=== PATIENT | female | born 1955 | race Caucasian/White ===

== ENCOUNTER 2017-05-15 06:37 | Outpatient (CLI) | payer MEDICARE | END 2017-05-15 06:38 | disposition short-term general hospital (02) | LOC: EMS 06:37 | PROVIDERS: ATTEND Surgery | DX: R53.1 Weakness (principal); W18.30XA Fall on same level, unspecified, initial encounter; Y93.9 Activity, unspecified; Y92.009 Unspecified place in unspecified non-institutional (private) residence as the place of occurrence of the external cause | CPT/HCPCS: A0425; A0427; A0888 ==

== ENCOUNTER 2017-08-02 08:34 | Outpatient (CLI) | payer MEDICARE | END 2017-08-02 08:35 | disposition EMS.NT | LOC: EMS 08:34 | PROVIDERS: ATTEND Surgery | DX: R73.09 Other abnormal glucose (principal) ==

== ENCOUNTER 2017-09-14 03:33 | Outpatient (CLI) | payer MEDICARE | END 2017-09-14 03:34 | disposition short-term general hospital (02) | LOC: EMS 03:33 | PROVIDERS: ATTEND Surgery | DX: R53.1 Weakness (principal); R11.0 Nausea; R42 Dizziness and giddiness | CPT/HCPCS: A0425; A0427; A0888 ==

== ENCOUNTER 2017-09-19 06:34 | Outpatient (CLI) | payer MEDICARE | END 2017-09-19 06:35 | disposition EMS.NT | LOC: EMS 06:34 | PROVIDERS: ATTEND Surgery | DX: R68.83 Chills (without fever) (principal); R53.83 Other fatigue ==

== ENCOUNTER 2017-09-21 05:32 | Outpatient (CLI) | payer MEDICARE | END 2017-09-21 05:33 | disposition short-term general hospital (02) | LOC: EMS 05:32 | PROVIDERS: ATTEND Surgery | DX: R40.0 Somnolence (principal) | CPT/HCPCS: A0425; A0427; A0888 ==

== ENCOUNTER 2018-01-09 06:00 | Outpatient (CLI) | payer MEDICARE | END 2018-01-09 06:01 | disposition short-term general hospital (02) | LOC: EMS 06:00 | PROVIDERS: ATTEND Surgery | DX: R47.81 Slurred speech (principal); R41.0 Disorientation, unspecified | CPT/HCPCS: A0425; A0429; A0888 ==

== ENCOUNTER 2018-03-31 12:46 | Outpatient (CLI) | payer MEDICARE | END 2018-03-31 12:47 | disposition short-term general hospital (02) | LOC: EMS 12:46 | PROVIDERS: ATTEND Surgery | DX: I10 Essential (primary) hypertension (principal) | CPT/HCPCS: A0425; A0429 ==

== ENCOUNTER 2018-04-11 14:46 | Outpatient (CLI) | payer MEDICARE | END 2018-04-11 23:59 | disposition short-term general hospital (02) | LOC: EMS 14:46 | PROVIDERS: ATTEND Surgery | DX: R51 Headache (principal); R42 Dizziness and giddiness | CPT/HCPCS: A0425; A0427; A0888 ==

== ENCOUNTER 2018-10-12 15:15 | Outpatient (CLI) | payer MEDICARE | END 2018-10-12 15:16 | disposition short-term general hospital (02) | LOC: EMS 15:15 | PROVIDERS: ATTEND Surgery | DX: R07.9 Chest pain, unspecified (principal) | CPT/HCPCS: A0425; A0427 ==

== ENCOUNTER 2018-12-23 03:53 | Outpatient (CLI) | payer MEDICARE, MEDICAID | END 2018-12-23 03:54 | disposition EMS.NT | LOC: EMS 03:53 | PROVIDERS: ATTEND Surgery | DX: R41.82 Altered mental status, unspecified (principal) ==

== ENCOUNTER 2018-12-24 06:43 | Outpatient (CLI) | payer MEDICARE, MEDICAID | END 2018-12-24 06:44 | disposition short-term general hospital (02) | LOC: EMS 06:43 | PROVIDERS: ATTEND Surgery | DX: R41.0 Disorientation, unspecified (principal) | CPT/HCPCS: A0425; A0427 ==

== ENCOUNTER 2019-01-01 12:41 | Outpatient (CLI) | payer MEDICARE, MEDICAID | END 2019-01-01 12:42 | disposition short-term general hospital (02) | LOC: EMS 12:41 | PROVIDERS: ATTEND Surgery | DX: R47.81 Slurred speech (principal); R41.0 Disorientation, unspecified; R05 Cough; R19.7 Diarrhea, unspecified | CPT/HCPCS: A0425; A0429; A0888 ==

== ENCOUNTER 2019-09-18 10:56 | Outpatient (CLI) | payer MEDICARE, MEDICAID | END 2019-09-18 10:57 | disposition short-term general hospital (02) | LOC: EMS 10:56 | PROVIDERS: ATTEND Surgery | DX: R55 Syncope and collapse (principal); K92.0 Hematemesis; R53.1 Weakness; S19.9XXA Unspecified injury of neck, initial encounter; M54.2 Cervicalgia; W19.XXXA Unspecified fall, initial encounter; Y92.008 Other place in unspecified non-institutional (private) residence as the place of occurrence of the external cause | CPT/HCPCS: A0425; A0427 ==

== ENCOUNTER 2020-01-05 12:35 | Outpatient (CLI) | payer MEDICARE, MEDICAID | END 2020-01-05 12:36 | disposition critical access hospital (66) | LOC: EMS 12:35 | PROVIDERS: ATTEND Surgery | DX: R73.09 Other abnormal glucose (principal); R51 Headache; R53.83 Other fatigue | CPT/HCPCS: A0425; A0427 ==

== ENCOUNTER 2020-01-05 12:55 | Emergency (ER) | payer MEDICARE, MEDICAID ==
[2020-01-05] MEDS ORDERED: DEXTROSE 10% 250 ML IV STA (13:09)
--- NOTE | 2020-01-05 13:11 | ED Physician Documentation ---
History of Present Illness - Stated complaint Stated Complaint: LOW BLOOD SUGAR - History obtained from History obtained from: Patient, Family - History of Present Illness Timing: Today Pain level max: 0 Pain level now: 0 - Additonal information Additional information: 64-year-old female presents to the emergency department stating that her blood sugar was low today. EMS states it was 21 on scene. They started D10 and it drove the patient here. Patient states she is currently feeling better. Was discharged from [facility] yesterday for DKA. Her states that he gave her her normal Lantus last night and this morning. She ate and drink normally as well. Nothing makes this better or worse. Patient is otherwise asymptomatic. Review of Systems Ten Systems: 10 systems reviewed and negative Constitutional: denies: Fever, Chills Throat: denies: Sore throat Cardiac: denies: Chest pain / pressure Respiratory: denies: Cough GI: denies: Vomiting, Diarrhea Skin: denies: Rash Musculoskeletal: denies: Neck pain, Back pain Neurologic: denies: Headache PD PAST MEDICAL HISTORY - Past Medical History Cardiovascular: None Respiratory: None Endocrine/Autoimmune: Type 2 diabetes GI: GERD, Pancreatitis : None Psych: None Musculoskeletal: None - Past Surgical History Past Surgical History: Yes General: Cholecystectomy - Present Medications Home Medications: Ambulatory Orders Medication Instructions Recorded Confirmed Gabapentin 200 mg PO 3-4XD 07/29/13 07/29/13 Insulin Glargine [Lantus] 13 unit SUBQ BID 07/29/13 07/29/13 Insulin Lispro [Humalog] 5 unit SUBQ ONCE 07/29/13 07/29/13 Omeprazole [Prilosec] 10 mg PO BID 07/29/13 07/29/13 traZODone [Desyrel] 100 mg PO HS 07/29/13 07/29/13 Cephalexin [Keflex] 500 mg PO Q6H #20 capsule 01/05/20 - Allergies Allergies/Adverse Reactions: Allergies Allergy/AdvReac Type Severity Reaction Status Date / Time Iodinated Contrast Media Allergy Intermediate throat Verified 01/05/20 13:08 swelling - Social History Does the pt smoke?: Yes Smoking Status: Current every day smoker Does the pt drink ETOH?: No Does the pt have substance abuse?: No - Immunizations Immunizations are current?: Yes PD ED PE NORMAL - Vitals Vital signs reviewed: Yes - General General: Alert and oriented X 3, No acute distress - HEENT HEENT: Moist mucous membranes - Neck Neck: Supple, no meningeal sign - Cardiac Cardiac: RRR - Respiratory Respiratory: No respiratory distress, Clear bilaterally - Abdomen Abdomen: Soft, Non tender, Non distended - Derm Derm: Warm and dry - Extremities Extremities: No tenderness to palpate - Neuro Neuro: Alert and oriented X 3 - Psych Psych: Normal mood, Normal affect Results - Vitals Vitals: Vital Signs - 24 hr 01/05/20 12:58 Temperature 37.2 C Heart Rate 70 Respiratory 16 Rate Blood Pressure 165/88 H O2 Saturation 100 Oxygen O2 Source Room air - Labs Labs: Laboratory Tests 01/05/20 01/05/20 01/05/20 13:20 13:20 14:05 WBC 8.1 RBC 3.89 L Hgb 11.9 L Hct 36.4 L MCV 93.6 MCH 30.6 MCHC 32.7 RDW 15.4 H Plt Count 298 MPV 10.5 Neut # (Auto) 6.3 Lymph # (Auto) 1.1 L [place] # (Auto) 0.7 Eos # (Auto) 0.0 Baso # (Auto) 0.0 Absolute Nucleated RBC 0.00 Nucleated RBC % 0.0 Sodium 134 L Potassium 2.9 L Chloride 102 Carbon Dioxide 24 Anion Gap 8.0 BUN 14 Creatinine 0.9 Estimated GFR (MDRD) 63 L Glucose 156 H Calcium 8.0 L Total Bilirubin 0.8 AST 26 ALT 18 Alkaline Phosphatase 61 Total Protein 5.5 L Albumin 2.4 L Globulin 3.1 Albumin/Globulin Ratio 0.8 L Lipase 15 L Urine Color YELLOW Urine Clarity HAZY Urine pH 5.5 Ur Specific [place] >=1.030 H Urine Protein >=300 H Urine Glucose (UA) NEGATIVE Urine Ketones TRACE Urine Occult Blood TRACE-INTA Urine Nitrite NEGATIVE Urine Bilirubin NEGATIVE Urine Urobilinogen 0.2 (NORMAL) Ur Leukocyte Esterase NEGATIVE Urine RBC 0-5 Urine WBC 0-3 Ur Squamous Epith Cells NONE SEEN Urine Bacteria Moderate H Ur Microscopic Review INDICATED Urine Culture Comments INDICATED PD MEDICAL DECISION MAKING - ED course Complexity details: reviewed results, re-evaluated patient, considered differential, d/w patient, d/w family ED course: Hypoglycemia resolved in the emergency department. Given Rocephin for UTI. Will place on Keflex as well. She is well-appearing, nontoxic. Afebrile. Asymptomatic. Patient and family counseled regarding signs and symptoms for which I believe and urgent re-evaluation would be necessary. Patient with good understanding of and agreement to plan and is comfortable going home at this time This document was made in part using voice recognition software. While efforts are made to proofread this document, sound alike and grammatical errors may occur. Departure - Departure Disposition: Home, Self Care Clinical Impression: Hypoglycemia UTI (urinary tract infection) Qualifiers: Urinary tract infection type: acute cystitis Hematuria presence: without hematuria Qualified Code(s): N30.00 - Acute cystitis without hematuria Condition: Good Instructions: ED Diabetes Hypoglycemia Insulin React, ED UTI Cystitis Female Follow-Up: Elizabeth Mchugh MD [Primary Care Provider] - Within 3 Days Prescriptions: Cephalexin [Keflex] 500 mg PO Q6H #20 capsule Comments: Take all antibiotics until gone. Return if you worsen. Follow-up with your doctor for further care. Make sure she is eating and drinking well at home.
[2020-01-05 13:26] LABS: BASOPHILS % (AUTO) 0.2 %; EOSINOPHILS % (AUTO) 0.4 %; HGB - HEMOGLOBIN 11.9 g/dL (12.0-16.0); LYMPHOCYTES # (AUTO) 1.1 10^3/uL (1.5-3.5); MEAN CORPUSCULAR HEMOGLOBIN 30.6 pg (27.0-31.0); MEAN CORPUSCULAR HGB CONC 32.7 g/dL (32.0-36.0); MEAN CORPUSCULAR VOLUME 93.6 fL (81.0-99.0); MEAN PLATELET VOLUME 10.5 fL (7.9-10.8); MONOCYTES # (AUTO) 0.7 10^3/uL (0.0-1.0); MONOCYTES % (AUTO) 8.1 %; NEUTROPHILS # (AUTO) 6.3 10^3/uL (1.5-6.6); NEUTROPHILS % (AUTO) 76.8 %; PLT - PLATELET COUNT 298 10^3/uL (130-450); RED BLOOD COUNT 3.89 10^6/uL (4.20-5.40); RED CELL DISTRIBUTION WIDTH 15.4 % (12.0-15.0); WHITE BLOOD COUNT 8.1 x10^3/uL (4.8-10.8)
[2020-01-05 13:39] LABS: ALBUMIN 2.4 g/dL (3.2-5.5); ALBUMIN/GLOBULIN RATIO 0.8 (1.0-2.2); BILIRUBIN,TOTAL 0.8 mg/dL (0.2-1.0); CREATININE 0.9 mg/dL (0.4-1.0); TOTAL PROTEIN 5.5 g/dL (6.7-8.2)
[2020-01-05] MEDS ORDERED: POTASSIUM CHLORIDE 20 MEQ TABLET PO STA (14:11)
[2020-01-05 14:18] LABS: GLUCOSE, URINE (UA) NEGATIVE (NEGATIVE); KETONES,URINE (UA) TRACE mg/dL (NEGATIVE); LEUKOCYTE ESTERASE, URINE NEGATIVE (NEGATIVE); NITRITE,URINE NEGATIVE (NEGATIVE); OCCULT BLOOD,URINE TRACE-INTA (NEGATIVE); PH,URINE 5.5 PH (5.0-7.5); PROTEIN,URINE >=300 mg/dL (NEGATIVE); UROBILINOGEN,URINE 0.2 (NORMAL) E.U./dL (NORMAL)
[2020-01-05 14:25] LABS: CLARITY,URINE HAZY (CLEAR)
[2020-01-05 14:27] LABS: BACTERIA,URINE Moderate /HPF (None Seen); BILIRUBIN,URINE NEGATIVE (NEGATIVE); ICTOTEST,URINE NEGATIVE; RBC,URINE 0-5 /HPF (0-5); SQUAMOUS EPITHELIAL CELL,UR NONE SEEN (<= Few)
[2020-01-05] MEDS ORDERED: cefTRIAXone 1 GM VIAL IVP STA (14:51)
[2020-01-05 15:42] VITALS: BP 166/92
== END 2020-01-05 15:50 | disposition home or self-care (01) ==
LOC: EDUNIT# → ED 12:55
DX: E11.649 Type 2 diabetes mellitus with hypoglycemia without coma (principal); N30.00 Acute cystitis without hematuria; F17.210 Nicotine dependence, cigarettes, uncomplicated; Z79.4 Long term (current) use of insulin
CPT/HCPCS: 36415; 80053; 81001; 83690; 85025; 87086; 96374; 99283; 99284; A9270; 81003

== ENCOUNTER 2020-08-06 14:47 | Outpatient (CLI) | payer MEDICARE, MEDICAID | END 2020-08-06 14:48 | disposition short-term general hospital (02) | LOC: EMS 14:47 | PROVIDERS: ATTEND Surgery | DX: Z04.3 Encounter for examination and observation following other accident (principal) | CPT/HCPCS: A0425; A0429 ==

== ENCOUNTER 2021-01-16 15:47 | Outpatient (CLI) | payer MEDICARE, MEDICAID ==
--- OUTSIDE RECORDS SUMMARY | 2021-01-23 00:18 | EXTERNAL MEDICAL SUMMARY RPT | Continuity of Care Document ---
:1955 Demographics Phone Unavailable Preferred Language Faroese Marital Status Unknown Episcopalian Affiliation Unknown Race Unknown Ethnic Group Unknown Author Organization [place] Address [address] [phone] Phone Care Team Providers Name Role Phone Kellie Unavailable Unavailable Leland Unavailable Unavailable Problems date description facility 20210116 Type 2 diabetes mellitus with ketoacido sis without [facility] Procedures date description facility 20201208 [facility] date description facility 20210116 [facility] Vital Signs date measurement value source 20201208 BMI 26.4 kg/m2 20201208 height_metric 160.02 cm 20201208 height_standard 63 in 20201208 temperature_metric 36.67 C 20201208 temperature_standard 98 F 20201208 weight_metric 30.66 kg 20201208 weight_standard 67.58 lb date measurement value source 20201209 BP_diastolic 69 mm[Hg] 20201209 BP_systolic 118 mm[Hg] 20201209 heart_rate 71 /min 20201209 respiration_rate 12 /min date measurement value source 20210116 BP_diastolic 72 mm[Hg] [id number] BP_systolic 108 mm[Hg] [id number] heart_rate 115 /min 20210116 height_metric 152.4 cm [id number] height_standard 60 in 20210116 respiration_rate 20 /min 20210116 temperature_metric 37 C 20210116 temperature_standard 98.6 F 20210116 weight_metric 25.63 kg 20210116 weight_metric 26.13 kg [id number] weight_standard 56.5 lb 20210116 weight_standard 57.61 lb date measurement value source 20210117 BP_diastolic 80 mm[Hg] [id number] BP_systolic 130 mm[Hg] 20210117 heart_rate 92 /min 20210117 respiration_rate 28 /min 20210117 temperature_metric 36.56 C 20210117 temperature_standard 97.8 F Social History date description facility [id number]
== END 2021-01-16 15:48 | disposition short-term general hospital (02) ==
LOC: EMS 15:47
DX: R00.0 Tachycardia, unspecified (principal); R42 Dizziness and giddiness
CPT/HCPCS: A0425; A0427

== ENCOUNTER 2021-05-08 12:53 | Outpatient (CLI) | payer MEDICARE, MEDICAID | END 2021-05-08 12:54 | disposition critical access hospital (66) | LOC: EMS 12:53 | DX: R41.0 Disorientation, unspecified (principal) | CPT/HCPCS: A0425; A0429 ==

== ENCOUNTER 2021-05-08 13:17 | Emergency (ER) | payer MEDICARE, MEDICAID ==
--- NOTE | 2021-05-08 13:23 | ED Physician Documentation ---
PD HPI ALTERED MENTAL STATUS - Stated complaint Stated Complaint: ALOC - History obtained from History obtained from: Patient, Friend, EMS - History of Present Illness Timing - onset: Today Timing - duration: Minutes (5-10) Timing - details: Abrupt onset (She states she had slept later this morning and had just woken up and felt a bit confused and then it cleared. Her caregiver and friend both felt she seemed more confused than usual and called EMS.), Now resolved Quality / character: Confused Associated symptoms: No: Fever, Headache Contributing factors: No: Recent med change, Recent illness Basline status: Alert and oriented X 3 Similar symptoms before: Has not had sx before (has had some), Other (has had more persistent confusion with UTIs, and had one about a month ago.) Recently seen: Other (in [place], was in for abd pains and had CT showing mass near gallbladder that needs further eval. Has appt with PCP this Thursday (in 2 days). Has seen GI in [place] in the past for EGDs.) Review of Systems Constitutional: denies: Fever, Chills Nose: denies: Rhinorrhea / runny nose, Congestion Throat: denies: Sore throat Respiratory: denies: Cough GI: denies: Vomiting, Diarrhea (loose stool), Bloody / black stool : reports: Incontinent. denies: Dysuria Skin: denies: Rash Neurologic: reports: Confused (for few minutes this morning, to baseline now.). denies: Headache PD PAST MEDICAL HISTORY - Past Medical History Cardiovascular: None Respiratory: None Endocrine/Autoimmune: Type 2 diabetes GI: GERD, Pancreatitis : None Psych: None Musculoskeletal: None - Past Surgical History Past Surgical History: Yes General: Cholecystectomy - Present Medications Home Medications: Ambulatory Orders Medication Instructions Recorded Confirmed Gabapentin 200 mg PO 3-4XD 07/29/13 07/29/13 Insulin Glargine [Lantus] 13 unit SUBQ BID 07/29/13 07/29/13 Insulin Lispro [Humalog] 5 unit SUBQ ONCE 07/29/13 07/29/13 Omeprazole [Prilosec] 10 mg PO BID 07/29/13 07/29/13 traZODone [Desyrel] 100 mg PO HS 07/29/13 07/29/13 cephALEXin [Keflex] 500 mg PO Q6H #20 capsule 01/05/20 - Allergies Allergies/Adverse Reactions: Allergies Allergy/AdvReac Type Severity Reaction Status Date / Time Iodinated Contrast Media Allergy Intermediate throat Verified 05/08/21 13:35 swelling - Social History Does the pt smoke?: Yes Smoking Status: Current every day smoker Does the pt drink ETOH?: No Does the pt have substance abuse?: No - Immunizations Immunizations are current?: Yes PD ED PE NORMAL - Vitals Vital signs reviewed: Yes - General General: Alert and oriented X 3, Well developed/nourished - HEENT HEENT: Atraumatic, Moist mucous membranes, Pharynx benign - Neck Neck: Supple, no meningeal sign, No adenopathy - Cardiac Cardiac: RRR, No murmur - Respiratory Respiratory: Clear bilaterally - Abdomen Abdomen: Normal bowel sounds, Soft, Non distended, No organomegaly - Derm Derm: Normal color, Warm and dry - Extremities Extremities: Normal ROM s pain - Neuro Neuro: Alert and oriented X 3, No motor deficit, Normal speech NIHSS - Level of Consciousness Level of consciousness: (0) Alert, Keenly responsive LOC Questions: (0) Answers both Q's correct LOC Commands: (0) Performs both correctly - Gaze Best Gaze: (0) Normal - Visual Visual: (0) No loss - Facial Palsy Facial Palsy: (0) Normal, symmetrical movement - Motor Arms (both separate) Motor Arm (right): (0) No drift Motor Arm (left): (0) No drift - Motor Legs (both separate) Motor Leg (right): (0) No drift Motor Leg (left): (0) No drift - Limb Ataxia Limb Ataxia: (0) Absent - Sensory Sensory: (0) Normal - Best Language Best Language: (0) No aphasia - Dysarthria Dysarthria: (0) Normal - Extinction and Inattention (formally neg Extinction and inattention: (0) No abnormality - Total Score/Results Total Score/Result: 0 Results - Vitals Vitals: Vital Signs - 24 hr 05/08/21 05/08/21 05/08/21 13:26 14:28 17:23 Temperature 36.9 C 36.6 C 36.7 C Heart Rate 73 71 116 H Respiratory 14 14 16 Rate Blood Pressure 151/90 H 150/88 H 156/80 H O2 Saturation 96 98 97 Oxygen O2 Source Room air - Labs Labs: Laboratory Tests 05/08/21 05/08/21 05/08/21 13:53 13:53 14:44 WBC 7.7 RBC 3.90 L Hgb 10.1 L Hct 31.7 L MCV 81.3 MCH 25.9 L MCHC 31.9 L RDW 13.9 Plt Count TNP MPV TNP Neut # (Auto) 4.3 Lymph # (Auto) 2.4 [place] # (Auto) 0.8 Eos # (Auto) 0.1 Baso # (Auto) 0.0 Absolute Nucleated RBC 0.00 Nucleated RBC % 0.0 Manual Slide Review Indicated Platelet Estimate NORMAL (130-450,000) Platelet Morphology PLATELET CLUMPING Sodium 138 Potassium 3.3 L Chloride 107 Carbon Dioxide 24 Anion Gap 7.0 BUN 11 Creatinine 1.4 H Estimated GFR (MDRD) 38 L Glucose 62 L Calcium 8.6 Total Bilirubin 0.6 AST 22 ALT 16 Alkaline Phosphatase 72 Troponin I High Sens 14.1 Total Protein 6.4 L Albumin 2.8 L Globulin 3.6 Albumin/Globulin Ratio 0.8 L Lipase 16 L Urine Color Urine Clarity Urine pH Ur Specific [place] Urine Protein Urine Glucose (UA) Urine Ketones Urine Occult Blood Urine Nitrite Urine Bilirubin Urine Urobilinogen Ur Leukocyte Esterase Urine RBC Urine WBC Ur Squamous Epith Cells Amorphous Sediment Urine Bacteria Urine Yeast Ur Microscopic Review Urine Culture Comments Ethyl Alcohol < 5.0 05/08/21 16:20 WBC RBC Hgb Hct MCV MCH MCHC RDW Plt Count MPV Neut # (Auto) Lymph # (Auto) [place] # (Auto) Eos # (Auto) Baso # (Auto) Absolute Nucleated RBC Nucleated RBC % Manual Slide Review Platelet Estimate Platelet Morphology Sodium Potassium Chloride Carbon Dioxide Anion Gap BUN Creatinine Estimated GFR (MDRD) Glucose Calcium Total Bilirubin AST ALT Alkaline Phosphatase Troponin I High Sens Total Protein Albumin Globulin Albumin/Globulin Ratio Lipase Urine Color YELLOW Urine Clarity CLEAR Urine pH 6.0 Ur Specific [place] >=1.030 H Urine Protein >=300 H Urine Glucose (UA) NEGATIVE Urine Ketones NEGATIVE Urine Occult Blood TRACE-INTA Urine Nitrite NEGATIVE Urine Bilirubin NEGATIVE Urine Urobilinogen 0.2 (NORMAL) Ur Leukocyte Esterase NEGATIVE Urine RBC 0-5 Urine WBC 0-3 Ur Squamous Epith Cells FEW Squamous Amorphous Sediment Marked Urine Bacteria Few Urine Yeast PRESENT Ur Microscopic Review INDICATED Urine Culture Comments NOT INDICATED Ethyl Alcohol - Rads (name of study) head CT Radiology: Prelim report reviewed (no ICH swelling nor massess.), See rad report PD MEDICAL DECISION MAKING - ED course Complexity details: reviewed results, re-evaluated patient, considered differential (seems alert and conversant here. She states she was just tired and did not wake up quickly. No focal weakness reported. ), d/w patient Departure - Departure Disposition: 01 Home, Self Care Clinical Impression: Transient confusion Condition: Stable Record reviewed to determine appropriate education?: Yes Comments: You look good here without any signs of bladder infection, altered blood sugar electrolytes focal weaknesses or other acute problems. I do not know the cause of your confusion transiently today. Continue usual medications and hydration. Follow-up with your primary care as planned later this week. Return if further problems. Discharge Date/Time: 05/08/21 17:25
[2021-05-08] MEDS ORDERED: SODIUM CHLORIDE 0.9% 1,000 ML IV STA (13:43)
[2021-05-08 14:14] LABS: ALBUMIN 2.8 g/dL (3.2-5.5); ALBUMIN/GLOBULIN RATIO 0.8 (1.0-2.2); ALKALINE PHOSPHATASE 72 IU/L (42-121); ALT ALANINE AMINOTRANSFERASE 16 IU/L (10-60); AST ASPARTATE AMINOTRANSFERASE 22 IU/L (10-42); BILIRUBIN,TOTAL 0.6 mg/dL (0.2-1.0); BUN - BLOOD UREA NITROGEN 11 mg/dL (6-20); CALCIUM 8.6 mg/dL (8.5-10.3); CARBON DIOXIDE - CO2 24 mmol/L (21-32); CHLORIDE 107 mmol/L (101-111); CREATININE 1.4 mg/dL (0.4-1.0); ETOH - ETHANOL < 5.0 mg/dL; GFR - MDRD 38 (>89); GLUCOSE 62 mg/dL (70-100); LIPASE 16 U/L (22-51); POTASSIUM 3.3 mmol/L (3.5-5.0); SODIUM 138 mmol/L (135-145); TOTAL PROTEIN 6.4 g/dL (6.7-8.2)
--- NOTE | 2021-05-08 14:15 | CT Report ---
PROCEDURE: HEAD WO INDICATIONS: confusion transient PEARL DIVER TECHNIQUE: Noncontrast 4.5 mm thick angled axial sections acquired from the foramen magnum to the vertex. For r adiation dose reduction, the following was used: automated exposure control, adjustment of mA and/or kV according to patient size. COMPARISON: None. FINDINGS: Image quality: Excellent. CSF spaces: Basal cisterns are patent. No extra-axial fluid collections. The ventricles are symmet jesusita in size and shape. Brain: No intracranial bleeds or masses. Old lacunar infarct is seen in right basal ganglia. There i s cerebral volume loss for age, with resultant ventricular and sulcal prominence. There are perivent ricular and deep white matter chronic small vessel ischemic changes. There is intracranial internal carotid artery atherosclerosis. Skull and face: Calvarium and visualized facial bones appear intact, without suspicious lesions. Sinuses: Visualized sinuses and mastoids are clear. IMPRESSION: 1. No CT evidence of acute intracranial bleed, midline shift or mass effect. No definite CT evidence of acute infarction. 2. Old lacunar infarct in right basal ganglia. Moderate white matter chronic small vessel ischemic ch anges. Parenchymal volume loss. Reviewed by: Joe Lopez MD on 05/08/2021 2:13 PM PDT Approved by: Joe Lopez MD on 05/08/2021 2:13 PM PDT Station ID: [id number]
[2021-05-08 14:50] LABS: BASOPHILS % (AUTO) 0.4 %; EOSINOPHILS # (AUTO) 0.1 10^3/uL (0.0-0.7); EOSINOPHILS % (AUTO) 0.9 %; HCT - HEMATOCRIT 31.7 % (37.0-47.0); HGB - HEMOGLOBIN 10.1 g/dL (12.0-16.0); LYMPHOCYTES # (AUTO) 2.4 10^3/uL (1.5-3.5); LYMPHOCYTES % (AUTO) 31.9 %; MEAN CORPUSCULAR HEMOGLOBIN 25.9 pg (27.0-31.0); MEAN CORPUSCULAR HGB CONC 31.9 g/dL (32.0-36.0); MEAN CORPUSCULAR VOLUME 81.3 fL (81.0-99.0); MONOCYTES # (AUTO) 0.8 10^3/uL (0.0-1.0); MONOCYTES % (AUTO) 9.9 %; NEUTROPHILS # (AUTO) 4.3 10^3/uL (1.5-6.6); NEUTROPHILS % (AUTO) 56.5 %; RED CELL DISTRIBUTION WIDTH 13.9 % (12.0-15.0); WHITE BLOOD COUNT 7.7 x10^3/uL (4.8-10.8)
[2021-05-08 14:53] LABS: SLIDE REVIEW? Indicated
[2021-05-08 15:27] LABS: PLATELET ESTIMATE, MANUAL NORMAL (130-450,000) (NORMAL); PLATELET MORPHOLOGY PLATELET CLUMPING (NORMAL)
[2021-05-08 16:29] LABS: BILIRUBIN,URINE NEGATIVE (NEGATIVE); GLUCOSE, URINE (UA) NEGATIVE (NEGATIVE); KETONES,URINE (UA) NEGATIVE (NEGATIVE); LEUKOCYTE ESTERASE, URINE NEGATIVE (NEGATIVE); NITRITE,URINE NEGATIVE (NEGATIVE); OCCULT BLOOD,URINE TRACE-INTA (NEGATIVE); PROTEIN,URINE >=300 mg/dL (NEGATIVE); UROBILINOGEN,URINE 0.2 (NORMAL) E.U./dL (NORMAL)
[2021-05-08 16:30] LABS: CLARITY,URINE CLEAR (CLEAR)
[2021-05-08 16:40] LABS: AMORPHOUS SEDIMENT,UR Marked /LPF; BACTERIA,URINE Few /HPF (None Seen); RBC,URINE 0-5 /HPF (0-5); SQUAMOUS EPITHELIAL CELL,UR FEW Squamous (<= Few); WBC,URINE 0-3 /HPF (0-5); YEAST,URINE PRESENT
[2021-05-08 17:24] VITALS: BP 156/80
== END 2021-05-08 17:25 | disposition home or self-care (01) ==
LOC: EDUNIT# → ED 13:17
DX: R41.0 Disorientation, unspecified (principal); E11.9 Type 2 diabetes mellitus without complications; Z79.4 Long term (current) use of insulin
CPT/HCPCS: 36415; 70450; 80053; 81001; 83690; 84484; 85025; 93005; 96360; 96361; 99284; G0480; 80320; 81003; 87086

== ENCOUNTER 2021-05-14 17:41 | Outpatient (CLI) | payer MEDICARE, MEDICAID | END 2021-05-14 17:42 | disposition EMS.NT | LOC: EMS 17:41 | DX: R50.9 Fever, unspecified (principal); R42 Dizziness and giddiness ==

== ENCOUNTER 2021-08-02 09:39 | Outpatient (CLI) | payer MEDICARE, MEDICAID | END 2021-08-02 09:40 | disposition short-term general hospital (02) | LOC: EMS 09:39 | DX: K92.0 Hematemesis (principal) | CPT/HCPCS: A0425; A0427 ==

== ENCOUNTER 2021-09-14 06:54 | Outpatient (CLI) | payer MEDICARE, MEDICAID | END 2021-09-14 06:55 | disposition short-term general hospital (02) | LOC: EMS 06:54 | DX: R22.0 Localized swelling, mass and lump, head (principal); R22.33 Localized swelling, mass and lump, upper limb, bilateral | CPT/HCPCS: A0425; A0427 ==

== ENCOUNTER 2021-11-24 21:01 | Outpatient (CLI) | payer MEDICARE, MEDICAID | END 2021-11-24 21:02 | disposition short-term general hospital (02) | LOC: EMS 21:01 | DX: S01.81XA Laceration without foreign body of other part of head, initial encounter (principal); M25.551 Pain in right hip; W01.190A Fall on same level from slipping, tripping and stumbling with subsequent striking against furniture, initial encounter; Y93.01 Activity, walking, marching and hiking; Y92.003 Bedroom of unspecified non-institutional (private) residence as the place of occurrence of the external cause | CPT/HCPCS: A0425; A0427 ==

== ENCOUNTER 2021-12-23 07:41 | Outpatient (CLI) | payer MEDICARE, MEDICAID | END 2021-12-23 07:42 | disposition short-term general hospital (02) | LOC: EMS 07:41 | DX: R41.0 Disorientation, unspecified (principal) | CPT/HCPCS: A0425; A0429 ==

== ENCOUNTER 2021-12-30 11:46 | Outpatient (CLI) | payer MEDICARE, MEDICAID | END 2021-12-30 11:47 | disposition short-term general hospital (02) | LOC: EMS 11:46 | DX: Z03.89 Encounter for observation for other suspected diseases and conditions ruled out (principal); Z79.01 Long term (current) use of anticoagulants; W19.XXXA Unspecified fall, initial encounter; Y92.009 Unspecified place in unspecified non-institutional (private) residence as the place of occurrence of the external cause | CPT/HCPCS: A0425; A0429 ==

== ENCOUNTER 2022-01-02 12:07 | Outpatient (CLI) | payer MEDICARE, MEDICAID | END 2022-01-02 12:08 | disposition short-term general hospital (02) | LOC: EMS 12:07 | DX: R41.0 Disorientation, unspecified (principal); R73.9 Hyperglycemia, unspecified | CPT/HCPCS: A0425; A0429 ==

== ENCOUNTER 2022-01-26 02:20 | Outpatient (CLI) | payer MEDICARE, MEDICAID | END 2022-01-26 02:21 | disposition EMS.NT | LOC: EMS 02:20 | DX: R40.0 Somnolence (principal); R46.4 Slowness and poor responsiveness; I10 Essential (primary) hypertension ==

== ENCOUNTER 2022-01-30 11:53 | Outpatient (CLI) | payer MEDICARE, MEDICAID | END 2022-01-30 11:54 | disposition short-term general hospital (02) | LOC: EMS 11:53 | DX: R14.0 Abdominal distension (gaseous) (principal); R19.37 Generalized abdominal rigidity; R10.84 Generalized abdominal pain; R63.5 Abnormal weight gain; R63.8 Other symptoms and signs concerning food and fluid intake | CPT/HCPCS: A0425; A0429 ==

== ENCOUNTER 2022-02-04 10:44 | Outpatient (CLI) | payer MEDICARE, MEDICAID | END 2022-02-04 10:45 | disposition EMS.NT | LOC: EMS 10:44 | DX: R53.1 Weakness (principal) ==

== ENCOUNTER 2022-02-11 18:10 | Outpatient (CLI) | payer MEDICARE | END 2022-02-11 18:11 | disposition critical access hospital (66) | LOC: EMS 18:10 | DX: E11.649 Type 2 diabetes mellitus with hypoglycemia without coma (principal); Z79.4 Long term (current) use of insulin | CPT/HCPCS: A0425; A0427 ==

== ENCOUNTER 2022-02-11 18:31 | Emergency (ER) | payer MEDICAID, MEDICARE ==
--- NOTE | 2022-02-11 18:40 | ED Physician Documentation ---
History of Present Illness - Stated complaint Stated Complaint: LOW BLOOD SUGAR - History obtained from History obtained from: Patient, EMS - Additonal information Additional information: 66-year-old woman with history of dementia, diabetes, cirrhosis presents to the emergency department with low blood sugars. Reportedly took 12 units of Lantus and 2 units of Humalog at 06 100 this morning. Had not had any further insulin today but had not had anything to eat or drink. EMS was summoned for low blood sugars and it was in the 40s. They were unable to obtain IV access but they fed her and subsequently it has come up to the 80s. Patient has no complaints but is a poor historian due to dementia. Her POA, Uvaldo, is reportedly on his way to the hospital. Review of Systems Unable to obtain: Dementia PD PAST MEDICAL HISTORY - Past Medical History Cardiovascular: None Respiratory: None Endocrine/Autoimmune: Type 2 diabetes GI: GERD, Pancreatitis : None Psych: None Musculoskeletal: None - Past Surgical History Past Surgical History: Yes General: Cholecystectomy - Present Medications Home Medications: Ambulatory Orders Medication Instructions Recorded Confirmed Gabapentin 200 mg PO 3-4XD 07/29/13 07/29/13 Insulin Glargine [Lantus] 13 unit SUBQ BID 07/29/13 07/29/13 Insulin Lispro [Humalog] 5 unit SUBQ ONCE 07/29/13 07/29/13 Omeprazole [Prilosec] 10 mg PO BID 07/29/13 07/29/13 traZODone [Desyrel] 100 mg PO HS 07/29/13 07/29/13 cephALEXin [Keflex] 500 mg PO Q6H #20 capsule 01/05/20 - Allergies Allergies/Adverse Reactions: Allergies Allergy/AdvReac Type Severity Reaction Status Date / Time Iodinated Contrast Media Allergy Intermediate throat Verified 02/11/22 18:40 swelling - Social History Does the pt smoke?: Yes Smoking Status: Current every day smoker Does the pt drink ETOH?: No Does the pt have substance abuse?: No - Immunizations Immunizations are current?: Yes - POLST Patient has POLST: No PD ED PE NORMAL - Vitals Vital signs reviewed: Yes - General General: No acute distress, Other (She is alert and oriented to person and place but not time or events.) - Cardiac Cardiac: RRR, No murmur - Respiratory Respiratory: No respiratory distress, Clear bilaterally - Abdomen Abdomen: Other (Ascites but nontender) - Extremities Extremities: Other (Trace pitting pedal edema) - Neuro Eye Opening: Spontaneous Motor: Obeys Commands Verbal: Confused GCS Score: 14 Results - Vitals Vitals: Vital Signs - 24 hr 02/11/22 02/11/22 18:32 20:44 Temperature 37.2 C Heart Rate 88 64 Respiratory 20 18 Rate Blood Pressure 118/79 109/61 O2 Saturation 100 98 Oxygen O2 Source Room air PD MEDICAL DECISION MAKING - ED course ED course: 66-year-old woman presents with hypoglycemia explained by taking long-acting insulin and then not eating all day. She was fed prior to arrival and on arrival her blood sugar was acceptable at 138. It was checked about hourly for the next few hours and continued to trend up for the most part. Departure - Departure Disposition: 01 Home, Self Care Clinical Impression: Hypoglycemia Condition: Good Record reviewed to determine appropriate education?: Yes Instructions: ED Diabetes Hypoglycemia Insulin React Comments: Tomorrow morning you can take her usual dose of insulin but make sure you eat after it. Return for new or worsening symptoms.
--- OUTSIDE RECORDS SUMMARY | 2022-02-11 19:11 | EXTERNAL MEDICAL SUMMARY RPT | Continuity of Care Document ---
:1955 Author Organization [facility] Address [address] [place] [address] Phone Care Team Providers Name Role Phone Brown Unavailable Unavailable Laursen Unavailable Unavailable More Unavailable Unavailable More Unavailable Unavailable Allergies No information. Encounters No information. Medications date description facility [id number] Omeprazole 20 MG Enteric Coated Capsule [facility] 20211202 POLYETHYLENE GLYCOL 3350 142 MG/ML Oral Solution [facility] 20211202 0.3 ML Enoxaparin sodium 100 MG/ML Pref [facility] Syringe [facility] 20211202 Bisacodyl 10 MG Rectal [facility] 20211202 Methocarbamol 500 MG Oral Tablet [facility] 20211202 Docusate Sodium 100 MG Oral Capsule [facility] 20211202 Oxycodone Hydrochloride 5 MG Oral [facility] 20211202 POLYETHYLENE GLYCOL 3350 142 MG/ML Oral Solution [facility] [id number] 0.3 ML Enoxaparin sodium 100 MG/ML Pref [facility] Syringe [facility] 20211202 Bisacodyl 10 MG Rectal Suppository [facility] 20211202 Methocarbamol 500 MG Oral Tablet [facility] 20211202 Docusate Sodium 100 MG Oral Capsule [facility] 20211202 Oxycodone Hydrochloride 5 MG Oral [facility] 20211202 POLYETHYLENE GLYCOL 3350 142 MG/ML Oral Solution [facility] 20211202 0.3 ML Enoxaparin sodium 100 MG/ML [facility] 20211202 Bisacodyl 10 MG Rectal Suppository [facility] 20211202 Methocarbamol 500 MG Oral Tablet [facility] 20211202 Docusate Sodium 100 MG Oral Capsule [facility] 20211202 Oxycodone Hydrochloride 5 MG Oral [facility] 20211124 24 HR Oxybutynin chloride 5 MG Extended Release Tablet [facility] 20211124 Lisinopril 20 MG Oral Tablet [facility] spital 20211124 Amlodipine [address] [facility] 20211124 pantoprazole 20 MG Enteric Coated [facility] 20211124 Omeprazole 20 MG Enteric Coated Capsule [facility] 20211124 24 HR Oxybutynin chloride 5 MG Extended Release Tablet [facility] 20211124 Lisinopril 20 MG Oral Tablet [facility]ital 20211124 Amlodipine 10 MG Oral Tablet [facility] 20211124 pantoprazole 20 MG Enteric Coated [facility] 20211124 Omeprazole 20 MG Enteric Coated Capsule [facility] 20211124 24 HR Oxybutynin chloride 5 MG Extended Release Tablet [facility] 20211124 Lisinopril 20 MG Oral Tablet [facility] spital 20211124 Amlodipine 10 MG Oral Tablet [facility] spital 20211124 pantoprazole 20 MG Enteric Coated [facility] 20211124 Omeprazole 20 MG Enteric Coated Capsule [facility] 20211115 Furosemide 20 MG Oral Tablet [facility] spital 20211115 Furosemide 20 MG Oral Tablet [facility]ital 20211115 Furosemide 20 MG Oral Tablet [facility] Problems date description facility [id number] Disorientation, unspecified [facility] pital 20211125 Type 2 diabetes mellitus without compli [facility] 20211125 [id number] Fracture of unspecified part of neck of right femur, [facility] initial [id number] Chronic kidney disease, stage 3 unspeci [facility] [id number] Anemia, unspecified [facility] Procedures date description facility [id number] [facility] [id number] [facility] [id number] [facility] [id number] [facility] [id number] [facility] [id number] [facility] [id number] [facility] [id number] [facility] [id number] [facility] [id number] [facility] [id number] [facility] [id number] [facility] [id number] [facility] [id number] [facility] Results No information. Vital Signs date measurement value source 20211124 weight_standard 63 lb 20211124 weight_metric 28.58 kg 20211124 temperature_standard 98 F 20211124 temperature_metric 36.67 C 20211124 respiration_rate 18 /min 20211125 height_standard 63 in 20211125 height_metric 160.02 cm 20211125 BMI 24.7 kg/m2 20211125 height_standard 63 in 20211125 height_metric 160.02 cm 20211125 heart_rate 88 /min 20211125 BP_systolic 166 mm[Hg] 20211125 BP_diastolic 106 mm[Hg] 20211125 BMI 24.7 kg/m2 20211202 temperature_standard 96.7 F 20211202 temperature_metric 35.94 C 20211202 weight_standard 58.5 lb 20211202 weight_metric 26.54 kg 20211202 temperature_standard 96.7 F 20211202 temperature_metric 35.94 C 20211202 respiration_rate 14 /min 20211202 heart_rate 76 /min 20211202 BP_systolic 137 mm[Hg] 20211202 BP_diastolic 74 mm[Hg] 20211223 respiration_rate 16 /min 20211223 heart_rate 68 /min 20211223 BP_systolic 182 mm[Hg] 20211223 BP_diastolic 84 mm[Hg] 20211230 weight_standard 55.79 lb 20211230 weight_metric 25.31 kg 20211230 temperature_standard 98.3 F 20211230 temperature_metric 36.83 C 20211230 respiration_rate 18 /min 20211230 height_standard 64 in 20211230 height_metric 162.56 cm 20211230 heart_rate 68 /min 20211230 BP_systolic 169 mm[Hg] 20211230 BP_diastolic 96 mm[Hg] 20211230 BMI 21.1 kg/m2 20220102 weight_standard 58.3 lb 20220102 weight_metric 26.44 kg 20220102 temperature_standard 97.4 F 20220102 temperature_metric 36.33 C 20220102 respiration_rate 16 /min 20220102 height_standard 64 in 20220102 height_metric 162.56 cm 20220102 heart_rate 67 /min 20220102 BP_systolic 138 mm[Hg] 20220102 BP_diastolic 75 mm[Hg] 20220102 BMI 24.0 kg/m2 20220103 weight_standard 58.3 lb [id number] weight_metric 26.44 kg 20220103 temperature_standard 97.6 F 20220103 temperature_metric 36.44 C 20220103 respiration_rate 18 /min 20220103 heart_rate 74 /min 20220103 BP_systolic 134 mm[Hg] 20220103 BP_diastolic 73 mm[Hg] 20220130 weight_standard 67.45 lb 20220130 weight_metric 30.59 kg 20220130 temperature_standard 98.4 F 20220130 temperature_metric 36.89 C 20220130 respiration_rate 21 /min 20220130 height_standard 65 in 20220130 height_metric 165.1 cm 20220130 heart_rate 77 /min 20220130 BP_systolic 122 mm[Hg] 20220130 BP_diastolic 66 mm[Hg] 20220130 BMI 24.7 kg/m2
[2022-02-11 21:39] VITALS: BP 117/69
== END 2022-02-11 21:45 | disposition home or self-care (01) ==
LOC: EDUNIT# → ED 18:31
DX: E11.649 Type 2 diabetes mellitus with hypoglycemia without coma (principal); Z79.4 Long term (current) use of insulin; F17.200 Nicotine dependence, unspecified, uncomplicated; F03.90 Unspecified dementia, unspecified severity, without behavioral disturbance, psychotic disturbance, mood disturbance, and anxiety
CPT/HCPCS: 99281; 99283

== ENCOUNTER 2022-02-12 07:31 | Outpatient (CLI) | payer MEDICARE | END 2022-02-12 07:32 | disposition EMS.NT | LOC: EMS 07:31 | DX: E11.649 Type 2 diabetes mellitus with hypoglycemia without coma (principal); Z79.4 Long term (current) use of insulin ==

== ENCOUNTER 2022-02-18 16:23 | Outpatient (CLI) | payer MEDICARE, MEDICAID ==
--- NOTE | 2022-02-19 09:45 | Ultrasound Report ---
PROCEDURE: Duplex Ext Veins Left INDICATIONS: PAIN IN LEFT LOWER TECHNIQUE: Real-time imaging, as well as color and pulse Doppler interrogation, were performed of the left lower extremity deep veins from the inguinal ligament to the popliteal fossa. COMPARISON: None. FINDINGS: The deep veins are normally compressible, and free of intraluminal thrombus. Color and pu lse Doppler demonstrate normal phasic intraluminal flow. There is normal augmentation response to di stal compression maneuver. IMPRESSION: No evidence of deep vein thrombosis involving the left lower extremity. Reviewed by: Gloria Ellis MD, PhD on 02/19/2022 9:43 AM PDT Approved by: Gloria Ellis MD, PhD on 02/19/2022 9:43 AM PDT Station ID: [id number]
== END 2022-02-18 16:24 | disposition home or self-care (01) ==
LOC: DI 16:23
PROVIDERS: ATTEND Internal Medicine
DX: M79.662 Pain in left lower leg (principal)

== ENCOUNTER 2022-02-19 10:15 | Outpatient (CLI) | payer MEDICARE | END 2022-02-19 10:16 | disposition EMS.NT | LOC: EMS 10:15 | DX: R60.0 Localized edema (principal) ==

== ENCOUNTER 2022-02-19 15:34 | Outpatient (CLI) | payer MEDICARE, MEDICAID | END 2022-02-19 15:35 | disposition short-term general hospital (02) | LOC: EMS 15:34 | DX: R14.0 Abdominal distension (gaseous) (principal); R10.9 Unspecified abdominal pain; K46.9 Unspecified abdominal hernia without obstruction or gangrene | CPT/HCPCS: A0425; A0429 ==